=== PATIENT | female | born 1970 | race Caucasian/White ===

== ENCOUNTER 2021-08-17 16:58 | Emergency (ER) | payer BC ==
--- NOTE | 2021-08-17 18:59 | EDM.PDOC ---
ED HPI GENERAL MEDICAL PROBLEM - General Chief Complaint: General Stated Complaint: POST COVID/DEHYDRATED Time Seen by Provider: 08/17/21 18:12 Source of Information: Reports: Patient, RN Notes Reviewed History Limitations: Reports: No Limitations - History of Present Illness INITIAL COMMENTS - FREE TEXT/NARRATIVE: Patient is a 51-year-old female presenting to the emergency department for evaluation of intermittently low temperatures in the setting of Covid. She reports becoming ill with Covid symptoms on August 04 and tested positive on August 08. She received monoclonal antibody infusion 4 days ago and states it did help. Up until the time of her infusion, she was having fevers, however since that time she states that she has had intermittent low temperatures as low as 92.0 orally. She reports her temperature "frequently fluctuates "since that time. She still has occasional cough and some shortness of breath with exertion. Other symptoms have improved. She sent a message to her primary care provider, Mitzy Skinner, who recommended she come to the ER to ensure that she is not septic. - Related Data Allergies Allergy/AdvReac Type Severity Reaction Status Date / Time No Known Allergies Allergy Verified 08/17/21 17:39 Home Meds: Home Meds Doxycycline [Vibra-Tabs] 100 mg PO Q12HR 5 Days #10 tab 08/17/21 [Rx] Metoprolol Succinate 50 mg PO DAILY 08/17/21 [History] Past Medical History Cardiovascular History: Reports: Hypertension Dermatologic History: Reports: Other (See Below) Social & Family History - Tobacco Use Tobacco Use Status *Q: Never Tobacco User - Recreational Drug Use Recreational Drug Use: No ED ROS GENERAL - Review of Systems Review Of Systems: See Below Constitutional: Reports: Fever, Chills, Fatigue HEENT: Reports: No Symptoms Respiratory: Reports: Shortness of Breath, Cough Cardiovascular: Reports: No Symptoms Endocrine: Reports: No Symptoms GI/Abdominal: Reports: No Symptoms : Reports: No Symptoms Musculoskeletal: Reports: No Symptoms Skin: Reports: No Symptoms Neurological: Reports: No Symptoms Psychiatric: Reports: No Symptoms Hematologic/Lymphatic: Reports: No Symptoms Immunologic: Reports: No Symptoms ED EXAM, GENERAL - Physical Exam Exam: See Below Exam Limited By: No Limitations General Appearance: Alert, WD/WN, No Apparent Distress Eye Exam: Bilateral Eye: Normal Inspection, PERRL Ears: Normal External Exam, Normal Canal, Hearing Grossly Normal, Normal TMs Throat/Mouth: Normal Inspection, Normal Lips, Normal Teeth, Normal Gums, Normal Oropharynx, Normal Voice, No Airway Compromise Respiratory/Chest: No Respiratory Distress, Lungs Clear, Normal Breath Sounds, No Accessory Muscle Use, Chest Non-Tender Cardiovascular: Normal Peripheral Pulses, Regular Rate, Rhythm, No Edema, No Gallop, No JVD, No Murmur, No Rub GI/Abdominal: Normal Bowel Sounds, Soft, Non-Tender, No Organomegaly, No Distention, No Abnormal Bruit, No Mass Neurological: Alert, Oriented, Normal Cognition, Normal Gait, No Motor/Sensory Deficits Psychiatric: Normal Affect, Normal Mood Skin Exam: Warm, Dry, Intact, Normal Color, No Rash Course - Vital Signs Last Recorded V/S: Last Vital Signs Temp 97.0 F 08/17/21 17:30 Pulse 79 08/17/21 17:30 Resp 20 08/17/21 17:30 BP 123/90 08/17/21 17:30 Pulse Ox 97 08/17/21 17:30 - Orders/Labs/Meds Labs: Laboratory Tests 08/17/21 08/17/21 08/17/21 Range/Units 18:36 18:36 18:36 WBC 5.10 (3.98-10.04) K/mm3 RBC 3.74 L (3.98-5.22) M/mm3 Hgb 11.5 (11.2-15.7) gm/dl Hct 33.8 L (34.1-44.9) % MCV 90.4 (79.4-94.8) fl MCH 30.7 (25.6-32.2) pg MCHC 34.0 (32.2-35.5) g/dl RDW Std Deviation 37.7 (36.4-46.3) fL Plt Count 345 (182-369) K/mm3 MPV 9.8 (9.4-12.3) fl Neut % (Auto) 62.8 (34.0-71.1) % Lymph % (Auto) 21.2 (19.3-51.7) % [place] % (Auto) 13.1 H (4.7-12.5) % Eos % (Auto) 2.5 (0.7-5.8) Baso % (Auto) 0.2 (0.1-1.2) % Neut # (Auto) 3.20 (1.56-6.13) K/mm3 Lymph # (Auto) 1.08 L (1.18-3.74) K/mm3 [place] # (Auto) 0.67 H (0.24-0.36) K/mm3 Eos # (Auto) 0.13 (0.04-0.36) K/mm3 Baso # (Auto) 0.01 (0.01-0.08) K/mm3 Manual Slide Review Sodium 141 (136-145) mEq/L Potassium 3.6 (3.5-5.1) mEq/L Chloride 104 (98-107) mEq/L Carbon Dioxide 27 (21-32) mEq/L Anion Gap 13.6 (5-15) BUN 9 (7-18) mg/dL Creatinine 0.6 (0.55-1.02) mg/dL Est Cr Clr Drug Dosing 96.60 mL/min Estimated GFR (MDRD) > 60 (>60) mL/min BUN/Creatinine Ratio 15.0 (14-18) Glucose 103 H (70-99) mg/dL Lactic Acid 0.7 (0.4-2.0) mmol/L Calcium 9.0 (8.5-10.1) mg/dL Total Bilirubin 0.4 (0.2-1.0) mg/dL AST 9 L (15-37) U/L ALT 13 L (14-59) U/L Alkaline Phosphatase 56 (46-116) U/L Total Protein 7.1 (6.4-8.2) g/dl Albumin 2.8 L (3.4-5.0) g/dl Globulin 4.3 gm/dL Albumin/Globulin Ratio 0.7 L (1-2) - Re-Assessments/Exams Free Text/Narrative Re-Assessment/Exam: Patient is a 51-year-old female presenting to the emergency department with complaints of fluctuations in her temperature and residual Covid symptoms. She is approximately 2 weeks into her illness. She reports temperature as low as 92 orally. Discussed with patient this is likely a false reading, however there may be some fluctuation in her temperature. Lung sounds are clear to auscultation. Vital signs on arrival to ER are normal. I will complete blood work and chest x-ray. 08/17/21 19:51 Hematology is unremarkable. Chest x-ray shows diffuse increased density throughout both lungs. Difficult to exclude prominent residual COVID-19 pneumonia. Patient reports that she has not had a chest x-ray done at any point throughout her illness. This is likely viral pneumonia related to COVID-19, however we will cover with azithromycin for any possible superimposed bacterial infection. Discussed that I would recommend purchasing a new thermometer as the 92.0 reading is very likely inaccurate. Discussed return precautions. Discharge instructions as documented. Departure - Departure Time of Disposition: 19:53 Disposition: Home, Self-Care 01 Condition: Good Clinical Impression: COVID-19 - Discharge Information *PRESCRIPTION DRUG MONITORING PROGRAM REVIEWED*: No *COPY OF PRESCRIPTION DRUG MONITORING REPORT IN PATIENT CALLIE: No Prescriptions: Doxycycline [Vibra-Tabs] 100 mg PO Q12HR 5 Days #10 tab Instructions: COVID-19 Referrals: Mitzy Skinner [facility] [Primary Care Provider] - Forms: ED Department Discharge Additional Instructions: Take the doxycycline as prescribed. Continue to push fluids. Follow-up with primary care provider in the next few days. Return to ER for any new or worsening symptoms.
--- NOTE | 2021-08-17 19:08 | CR ---
Chest: PA and lateral views of the chest were obtained. Comparison: No prior chest imaging is available. Patchy areas of increased density are seen throughout both lungs. Heart size and mediastinum are normal. Bony structures appear unremarkable. Heart size and mediastinal are within normal limits. Mild scattered degenerative change is seen within the spine. Impression: 1. Diffuse increased density throughout both lungs. Difficult to exclude prominent residual COVID - 19 pneumonia. 2. Other incidental findings as noted above. Diagnostic code #3
== END 2021-08-17 20:17 | disposition home or self-care (01) ==
LOC: JD.ED 16:58
DX: U07.1 COVID-19 (principal)
CPT/HCPCS: 36415; 71046; 71046-26; 80053; 83605; 85025; 99283-25